=== PATIENT | female | born 1990 | race Caucasian/White ===

== ENCOUNTER 2017-06-19 22:18 | Emergency (ER) | payer BC ==
[~2017-06-19] VITALS: Ht 167.6 cm; Wt 73.0 kg
[~2017-06-19 22:18] MED LIST: IBUP200T48 PO
[2017-06-19 22:25] VITALS: BP 120/81
[2017-06-19] MEDS ORDERED: KETOROLAC 30 MG/1 ML IM ONE (23:00)
[2017-06-19] MEDS ORDERED: ACETAMINOPHEN 500 MG TABLET PO ONE (23:00)
[2017-06-19 23:38] LABS: RAPID INFLUENZA A Negative (Negative); RAPID INFLUENZA B Negative (Negative)
== END 2017-06-20 00:48 | disposition home or self-care (01) ==
LOC: ED 23:59
DX: J20.8 Acute bronchitis due to other specified organisms (principal); B96.89 Other specified bacterial agents as the cause of diseases classified elsewhere; R50.9 Fever, unspecified
CPT/HCPCS: 71020; 87400; 96372; 99285; J1885

== ENCOUNTER 2018-01-31 22:45 | Emergency (ER) | payer BC ==
[~2018-01-31] VITALS: Ht 167.6 cm; Wt 68.0 kg
[~2018-01-31 22:45] MED LIST changes: -IBUP200T48 PO; +IBUP200T49 PO
[2018-01-31] MEDS ORDERED: ONDANSETRON 2MG/ML, 2ML IVPush ONE (23:30)
[2018-01-31] MEDS ORDERED: MORPHINE SULFATE 4 MG/ML, 1ML ONE (23:33)
[2018-01-31] MEDS ORDERED: ONDANSETRON ODT 4 MG ONE (23:33)
[2018-01-31 23:41] LABS: BASOPHILS # (AUTO) 0.08 x10^3/uL (0-0.1); BASOPHILS % (AUTO) 1 % (0-1); EOSINOPHILS # (AUTO) 0.11 x10^3/uL (0-0.4); EOSINOPHILS % (AUTO) 1 % (1-7); LYMPHOCYTES # (AUTO) 1.09 x10^3/uL (1-3.4); LYMPHOCYTES % (AUTO) 9 % (22-44); MD NO; MEAN CORPUSCULAR HEMOGLOBIN 30.2 pg (27.0-34.8); MEAN CORPUSCULAR HGB CONC 34.4 g/dL (32.4-35.8); MEAN CORPUSCULAR VOLUME 87.9 fL (80-100); MEAN PLATELET VOLUME 7.3 fL (7.4-10.4); MONOCYTES # (AUTO) 0.66 x10^3/uL (0.2-0.8); MONOCYTES % (AUTO) 5 % (2-9); NEUTROPHILS % (AUTO) 84 % (42-75); PLATELET COUNT 363 x10^3/uL (130-400); RED BLOOD COUNT 4.56 x10^6/uL (3.82-5.3); RED CELL DISTRIBUTION WIDTH 12.5 % (9.6-15.2)
[2018-01-31] MEDS: MORPHINE SULFATE 4 MG/ML, 1ML IVPush PRN (23:41)
[2018-01-31 23:52] LABS: ALANINE AMINOTRANSFERASE 19 U/L (12-78); ALBUMIN 3.7 g/dL (3.4-5.0); ANION GAP 7 mmol/L (5-15); CALCIUM 9.4 mg/dL (8.5-10.1); CHLORIDE 105 mmol/L (98-107); CREATININE 0.65 mg/dL (0.55-1.02)
[2018-01-31 23:54] LABS: ALKALINE PHOSPHATASE 129 U/L (45-117); BILIRUBIN,TOTAL 0.2 mg/dL (0.2-1.0); TOTAL PROTEIN 8.1 g/dL (6.4-8.2)
[2018-02-01] MEDS ORDERED: ONDANSETRON ODT 4 MG PO ONE
[2018-02-01 00:01] LABS: MICROSCOPIC AUTO
[2018-02-01 00:04] LABS: CULTURE INDICATED? NO
[2018-02-01] MEDS: MORPHINE SULFATE 4 MG/ML, 1ML IVPush PRN (00:14)
[2018-02-01] MEDS ORDERED: LORazepam 2 MG/ML, 1ML ONE (02:00)
[2018-02-01] MEDS ORDERED: KETOROLAC 30 MG/1 ML ONE (02:00)
[2018-02-01] MEDS ORDERED: KETOROLAC 30 MG/1 ML IVPush ONE (02:30)
[2018-02-01] MEDS ORDERED: LORazepam 2 MG/ML, 1ML IVPush ONE (02:30)
[2018-02-01 02:57] VITALS: BP 118/73
[2018-02-01] MEDS ORDERED: OMNIPAQUE 350 MG/ML, 100ML BOTTLE ONE (04:30)
== END 2018-02-01 03:13 | disposition home or self-care (01) ==
LOC: ED 23:59
DX: R10.11 Right upper quadrant pain (principal)
CPT/HCPCS: 36415; 71045; 74177; 76700; 80053; 81001; 81025; 83690; 85025; 96374; 96375; 99285; J1885; J2060; Q0162; Q9967